=== PATIENT | female | born 1990 | race Caucasian/White ===

== ENCOUNTER 2016-10-20 13:45 | Emergency (ER) | payer OTHER ==
[2016-10-20 14:01] VITALS: BP 128/84
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
== END 2016-10-20 15:09 | disposition home or self-care (01) ==
LOC: ER 13:45
DX: R51 Headache (principal); V87.7XXA Person injured in collision between other specified motor vehicles (traffic), initial encounter
CPT/HCPCS: 99283